=== PATIENT | female | born 1960 | race Hispanic/Latino ===

== ENCOUNTER 2023-01-05 05:42 | Observation (INO) | payer OTHER ==
[2022-12-31 11:43] VITALS: BP 158/80
[2022-12-31 12:05] LABS: BASOPHILS % (AUTO) 0.4 % (0.0-5.0); EOSINOPHILS % (AUTO) 1.7 % (0.0-8.0); HEMATOCRIT 36.3 % (36-48); LYMPHOCYTES % (AUTO) 31.4 % (21.0-51.0); MEAN CORPUSCULAR HEMOGLOBIN 31.8 pg (27.0-33.0); MEAN CORPUSCULAR HGB CONC 33.3 g/dL (32.0-36.0); MEAN CORPUSCULAR VOLUME 95.3 fL (79-99); MONOCYTES % (AUTO) 6.9 % (3.0-13.0); NEUTROPHILS % (AUTO) 59.5 % (40.0-77.0); PLATELET COUNT (AUTO) 175 K/uL (130-400); RED BLOOD CELL COUNT(AUTO) 3.81 MIL/uL (4.00-5.50); RED CELL DISTRIBUTION WIDTH 12.4 % (11.0-15.5); WHITE BLOOD COUNT (AUTO) 6.9 K/uL (4.8-10.8)
[2022-12-31 12:21] LABS: INR 0.93 (0.85-1.15); PROTHROMBIN TIME 10.2 SEC (9.6-11.6)
[2022-12-31 12:22] LABS: PARTIAL THROMBOPLASTIN TIME 28.2 SEC (26.3-35.5)
[2022-12-31 12:25] LABS: CREATININE 0.8 mg/dL (0.5-1.5); POTASSIUM 4.4 mmol/L (3.5-5.1)
[2023-01-05] VITALS (28 sets, daily range): BP systolic 118–147; BP diastolic 51–79
[~2023-01-05] VITALS: Ht 160 cm; Wt 80.3 kg
[~2023-01-05 05:42] MED LIST: ATOR10TA69 PO; FISH1CAP27 PO; IBUP-2070 PO; VITA-388 PO; [UNRECOGNIZED DRUG - OTHER] PO
[2023-01-05] MEDS ORDERED: LACTATED RINGERS 1000ML 1,000 ML IV ONE (06:40)
[2023-01-05] MEDS ORDERED: CEFAZOLIN SODIUM 2 GM VIAL ONE (06:40)
[2023-01-05] MEDS ORDERED: TRANEXAMIC ACID 1000MG/10ML ONE (07:21)
[2023-01-05] MEDS ORDERED: HYDROCODONE/ACETAMINOPHEN 10/325 MG TAB PO PRN (08:00)
[2023-01-05] MEDS ORDERED: KCL 20 MEQ ERTAB PO PRN (08:00)
[2023-01-05] MEDS ORDERED: MORPHINE 4 MG SYG IVP PRN (08:00)
[2023-01-05] MEDS ORDERED: POTASSIUM CHLORIDE 20MEQ/100ML 100 ML IV PRN (08:00)
[2023-01-05] MEDS ORDERED: POTASSIUM CHLORIDE 10% ELIXIR 20 MEQ/15 ML UDCUP PO PRN (08:00)
[2023-01-05] MEDS ORDERED: ONDANSETRON 4MG INJ IVP PRN (08:00)
[2023-01-05] MEDS ORDERED: HYDROCODONE/ACETAMINOPHEN 5/325 MG TAB PO PRN (08:00)
[2023-01-05] MEDS: POLYETHYLENE GLYCOL 3350 17 GM POWD.PACK PO SCH (09:00)
[2023-01-05] MEDS: ATORVASTATIN 10 MG TABLET PO SCH (09:00)
[2023-01-05] MEDS: FAMOTIDINE 20MG TAB PO SCH ×2 (09:00→20:35)
[2023-01-05] MEDS ORDERED: FENTANYL CITRATE PF 50 MCG/1 ML 2ML VIAL ONE (09:18)
[2023-01-05] MEDS ORDERED: PROPOFOL 10 MG/ML 20ML VIAL IV ONE (09:18)
[2023-01-05] MEDS ORDERED: SUCCINYLCHOLINE CHLORIDE 20 MG/ML 10 ML VIAL ONE (09:18)
[2023-01-05] MEDS ORDERED: LIDOCAINE PF 100MG/5ML (2%) SYRINGE 5ML ONE (09:18)
[2023-01-05] MEDS ORDERED: MIDAZOLAM HCL 1 MG/ML 2ML VIAL ONE (09:18)
[2023-01-05] MEDS ORDERED: CEFAZOLIN SODIUM 2 GM VIAL IVPB ONE (09:20)
[2023-01-05] MEDS ORDERED: EPHEDRINE SULFATE 50 MG/ML AMPULE ONE (11:31)
[2023-01-05] MEDS ORDERED: NEOSTIGMINE 5MG/5ML SYR IV ONE (11:34)
[2023-01-05] MEDS ORDERED: GLYCOPYRROLATE 1 MG/5 ML SYRINGE ONE (11:34)
[2023-01-05] MEDS ORDERED: MEPERIDINE-PF 25 MG/ML SYG ONE (12:00)
[2023-01-05] MEDS: ACETAMINOPHEN 1,000 MG/100 ML VIAL IV SCH ×3 (12:07→23:50)
[2023-01-05] MEDS: IBUPROFEN 800MG + NS 250ML IV SCH ×2 (13:00→20:40)
[2023-01-05] MEDS: 0.9%NACL 1000ML 1,000 ML IV SCH ×2 (15:30→18:00)
[2023-01-05] MEDS: TRAMADOL HCL 50 MG TABLET PO SCH ×3 (15:30→23:52)
[2023-01-05] MEDS: CEFAZOLIN SODIUM 2 GM VIAL IVPB SCH ×2 (17:20→20:40)
[2023-01-05] MEDS ORDERED: ACETAMINOPHEN 1,000 MG/100 ML VIAL IV ONE (21:58)
[2023-01-06] VITALS: BP 113/49
[2023-01-06] MEDS: IBUPROFEN 800MG + NS 250ML IV SCH (02:25)
[2023-01-06] MEDS: 0.9%NACL 1000ML 1,000 ML IV SCH (03:14)
[2023-01-06 04:00] VITALS: BP 113/52
[2023-01-06] MEDS: TRAMADOL HCL 50 MG TABLET PO SCH ×3 (04:55→20:36)
[2023-01-06 05:46] LABS: HEMATOCRIT 30.4 % (36-48); MEAN CORPUSCULAR HEMOGLOBIN 31.8 pg (27.0-33.0); MEAN CORPUSCULAR HGB CONC 32.9 g/dL (32.0-36.0); MEAN CORPUSCULAR VOLUME 96.8 fL (79-99); RED BLOOD CELL COUNT(AUTO) 3.14 MIL/uL (4.00-5.50); RED CELL DISTRIBUTION WIDTH 12.4 % (11.0-15.5); WHITE BLOOD COUNT (AUTO) 7.4 K/uL (4.8-10.8)
[2023-01-06 06:18] LABS: CREATININE 0.9 mg/dL (0.5-1.5); POTASSIUM 4.3 mmol/L (3.5-5.1)
[2023-01-06 07:35] VITALS: BP 111/48
[2023-01-06] MEDS: ATORVASTATIN 10 MG TABLET PO SCH (09:25)
[2023-01-06] MEDS: FAMOTIDINE 20MG TAB PO SCH ×2 (09:25→22:10)
[2023-01-06] MEDS: ASPIRIN 81 MG EC TAB PO SCH ×2 (09:25→22:10)
[2023-01-06] MEDS: POLYETHYLENE GLYCOL 3350 17 GM POWD.PACK PO SCH (09:26)
[2023-01-06 11:10] VITALS: BP 110/46
[2023-01-06 20:00] VITALS: BP 147/62
[2023-01-06 23:36] VITALS: BP 124/56
[2023-01-07 04:00] VITALS: BP 123/56
[2023-01-07] MEDS: TRAMADOL HCL 50 MG TABLET PO SCH ×2 (04:59→13:04)
[2023-01-07 07:30] VITALS: BP 135/69
[2023-01-07] MEDS: POLYETHYLENE GLYCOL 3350 17 GM POWD.PACK PO SCH (09:18)
[2023-01-07] MEDS: ATORVASTATIN 10 MG TABLET PO SCH (09:18)
[2023-01-07] MEDS: ASPIRIN 81 MG EC TAB PO SCH (09:18)
[2023-01-07] MEDS: FAMOTIDINE 20MG TAB PO SCH (09:18)
[2023-01-07 11:30] VITALS: BP 133/67
[2023-01-08] MEDS ORDERED: BISACODYL 10 MG SUPP.RECT RC PRN (08:00)
== END 2023-01-07 15:20 | disposition home or self-care (01) ==
LOC: DAH 05:42 → DAHIP 05:43 → 4CH 18:22
PROVIDERS: ADMIT Orthopaedic Surgery; ATTEND Orthopaedic Surgery
DX: M17.12 Unilateral primary osteoarthritis, left knee (principal); Z20.822 Contact with and (suspected) exposure to COVID-19; M24.561 Contracture, right knee; I10 Essential (primary) hypertension; E78.00 Pure hypercholesterolemia, unspecified; E66.9 Obesity, unspecified; Z79.899 Other long term (current) drug therapy; Z68.30 Body mass index [BMI] 30.0-30.9, adult
CPT/HCPCS: 80048 ×2; 85025; 85610; 85730; 87426; 36415 ×2; 87641; 27447; 64447; 96376; 96365; 96366 ×2; 96375 ×2; 96367; 97161; 97039 ×5; 97116 ×5; 85027; 97530; A6260; G0378 ×50; A4663; J7030 ×2; J7120; J3010; J3490 ×3; J2710; J0330; J2001; J2250; J2704; J2175; J1741 ×4; J0690 ×4; A6223; G0168; A4649 ×4; A4930; A6212; C1776 ×4; A5120; A4215; A4223; A4222; A4221; J2405; J2270